=== PATIENT | male | born 1940 | race Caucasian/White ===

== ENCOUNTER 2017-05-04 14:08 | Emergency (ER) | payer MEDICARE, OTHER ==
--- NOTE | 2017-05-04 14:40 | ER Document Report ---
ED Dizziness/Weakness - General Chief Complaint: Nausea/Vomiting Stated Complaint: NAUSEA VOMITING DIZZINESS Time Seen by Provider: 05/04/17 14:24 Mode of Arrival: Stretcher Information source: Patient TRAVEL OUTSIDE OF THE [place] IN LAST 30 DAYS: No - HPI Patient complains to provider of: Dizziness, Vertigo Onset: Just prior to arrival Onset/Duration: Sudden Quality of pain: No pain Associated symptoms: Dizzy, Nausea, Vomiting Baseline gait: Walks w/o assistance Notes: Patient is a 76-year-old male with no medical history, who presents to the emergency room today complaining of dizziness with nausea and 2 episodes of vomiting, states the dizziness developed this afternoon, he went to urgent care to get checked out, vomited in the parking lot walking again, he denies any abdominal pain, no diarrhea, no fever or chills, no questionable food intake, no sick contacts, states that he felt off balance, denies a headache, no fever or chills, otherwise had a normal day, ate well and drink well, has never had any surgeries, denies any chest pain or shortness of breath, in the ambulance ride here he also vomited once, received some IV Zofran and reports feeling much better since then, the urgent care center reports his blood pressure to be 200/108, after receiving the Zofran it was 163/73, here in the emergency department is 148/70, he denies a history of high blood pressure and does not currently take any medications, he reports a similar episode of dizziness back in October which self resolved - Related Data Allergies/Adverse Reactions: No Known Allergies Allergy (Unverified 05/04/17 14:27) Home Medications: Current Home Medications No Home Medications 05/04/17 [History] Past Medical History - General Information source: Patient - Social History Smoking Status: Former Smoker Chew tobacco use (# tins/day): No Frequency of alcohol use: None Drug Abuse: None Family History: Reviewed & Not Pertinent Patient has suicidal ideation: No Patient has homicidal ideation: No Renal/ Medical History: Denies: Hx Peritoneal Dialysis Review of Systems - Review of Systems Constitutional: No symptoms reported EENT: Vertigo Cardiovascular: Dizziness Respiratory: No symptoms reported Gastrointestinal: See HPI Genitourinary: No symptoms reported Male Genitourinary: No symptoms reported Musculoskeletal: No symptoms reported Skin: No symptoms reported Hematologic/Lymphatic: No symptoms reported Neurological/Psychological: No symptoms reported -: Yes All other systems reviewed and negative Physical Exam - Vital signs Vitals: Resp 16 05/04/17 14:22 Interpretation: Normal - General General appearance: Appears well, Alert - HEENT Head: Normocephalic, Atraumatic Eyes: Normal Pupils: PERRL - Respiratory Respiratory status: No respiratory distress Chest status: Nontender Breath sounds: Normal Chest palpation: Normal - Cardiovascular Rhythm: Regular Heart sounds: Normal auscultation Murmur: No - Abdominal Inspection: Normal Distension: No distension Bowel sounds: Normal Tenderness: Nontender Organomegaly: No organomegaly - Back Back: Normal, Nontender - Extremities General upper extremity: Normal inspection, Nontender, Normal color, Normal ROM , Normal temperature General lower extremity: Normal inspection, Nontender, Normal color, Normal ROM , Normal temperature, Normal weight bearing. No: Lew's sign - Neurological Neuro grossly intact: Yes Cognition: Normal Orientation: AAOx4 [place] Coma Scale Eye Opening: Spontaneous [place] Coma Scale Verbal: Oriented [place] Coma Scale Motor: Obeys Commands [place] Coma Scale Total: 15 Speech: Normal Motor strength normal: LUE, RUE, LLE, RLE Sensory: Normal - Psychological Associated symptoms: Normal affect, Normal mood - Skin Skin Temperature: Warm Skin Moisture: Dry Skin Color: Normal Course - Re-evaluation Re-evalutation: 05/04/17 16:09 Patient resting comfortably, continues to remain asymptomatic, will attempt to ambulate and ensure that symptoms do not return, lab findings were discussed with patient and family members at bedside, they did question why his blood pressure was elevated at 160/71, I explained that it is likely a stress reaction because of the events of the day and I would not start him on blood pressure medications at this time but encouraged follow-up with the primary care provider in the next 1-2 days for reevaluation of blood pressure 05/04/17 16:19 Patient was able to ambulate without any additional symptoms, he will be discharged with a Zofran dose pack and instructions for follow-up, advised to return if any additional concerns, patient and family members acknowledge understanding and agreement with this plan - Vital Signs Vital signs: Temp Pulse Resp BP Pulse Ox 97.7 F 63 19 168/69 H 96 05/04/17 14:31 05/04/17 15:21 05/04/17 15:00 05/04/17 15:21 05/04/17 15:00 - Laboratory Result Diagrams: 05/04/17 14:57 05/04/17 14:57 Laboratory results interpreted by me: 05/04/17 05/04/17 14:57 15:15 WBC 14.9 H Seg Neutrophils % 89.7 H Lymphocytes % 6.5 L Absolute Neutrophils 13.4 H Urine Ketones 20 H Urine Ascorbic Acid 40 H - EKG Interpretation by Me EKG shows normal: Sinus rhythm Rate: Normal Rhythm: NSR Discharge - Discharge Clinical Impression: Dizziness Nausea & vomiting Qualifiers: Vomiting type: unspecified Vomiting Intractability: non-intractable Qualified Code(s): R11.2 - Nausea with vomiting, unspecified Condition: Stable Disposition: HOME, SELF-CARE Instructions: Antinausea Medication ([facility]), Vomiting ([facility]), Dizziness ([facility]), Vertigo ([facility]) Additional Instructions: Follow up with your primary care provider in one to 2 days. Return to the emergency room immediately if symptoms worsen or any additional concerns.
[2017-05-04 15:25] LABS: ABSOLUTE MONOCYTES (AUTO) 0.6 10^3/uL (0.1-1.4); ABSOLUTE NEUT (AUTO) 13.4 10^3/uL (1.7-8.2); BASOPHILS % (AUTO) 0.1 % (0-2); HEMATOCRIT 43.5 % (37.9-51.0); HEMOGLOBIN 14.8 g/dL (13.5-17.0); HGB HCT DIFFERENCE 0.9; LYMPHOCYTES % (AUTO) 6.5 % (13-45); MEAN CORPUSCULAR HEMOGLOBIN 31.4 pg (27.0-33.4); MEAN CORPUSCULAR HGB CONC 34.1 g/dL (32.0-36.0); MEAN CORPUSCULAR VOLUME 92 fl (80-97); MONOCYTES % (AUTO) 3.7 % (3-13); RED BLOOD COUNT 4.72 10^6/uL (4.35-5.55); RED CELL DISTRIBUTION WIDTH 12.9 % (11.5-14.0); SEGMENTED NEUTROPHILS % (AUTO) 89.7 % (42-78); WHITE BLOOD COUNT 14.9 10^3/uL (4.0-10.5)
[2017-05-04 15:46] LABS: ALANINE AMINOTRANSFERASE 36 U/L (21-72); ALBUMIN 4.1 g/dL (3.5-5.0); ALKALINE PHOSPHATASE 111 U/L (38-126); ANION GAP 12 (5-19); ASPARTATE AMINO TRANSFERASE 28 U/L (17-59); BILIRUBIN,DIRECT 0.4 mg/dL (0.0-0.4); BILIRUBIN,TOTAL 0.8 mg/dL (0.2-1.3); BLOOD UREA NITROGEN 19 mg/dL (7-20); CALCIUM 9.4 mg/dL (8.4-10.2); CARBON DIOXIDE 25 mmol/L (22-30); CHLORIDE 105 mmol/L (98-107); CREATINE KINASE 85 U/L (55-170); CREATININE RESULT 0.79 mg/dL (0.52-1.25); GLUCOSE 97 mg/dL (75-110); LIPASE 45.7 U/L (23-300); POTASSIUM 4.2 mmol/L (3.6-5.0); SODIUM 142.1 mmol/L (137-145); TOTAL PROTEIN 6.8 g/dL (6.3-8.2)
[2017-05-04 15:56] LABS: APPEARANCE,URINE SLIGHTLY-CLOUDY; BILIRUBIN,URINE NEGATIVE (NEGATIVE); GLUCOSE, URINE NEGATIVE (NEGATIVE); KETONES,URINE 20 mg/dL (NEGATIVE); LEUKOCYTE ESTERASE,URINE NEGATIVE (NEGATIVE); NITRITE,URINE NEGATIVE (NEGATIVE); PROTEIN,URINE NEGATIVE (NEGATIVE); URINE SPECIFIC GRAVITY 1.021; UROBILINOGEN,URINE NEGATIVE mg/dL (<2.0)
[2017-05-04 16:02] LABS: CREATINE KINASE MB 1.72 ng/mL (<4.55)
[2017-05-04 16:03] LABS: TROPONIN I < 0.012 ng/mL
[2017-05-04] MEDS ORDERED: ONDANSETRON ODT 4 MG TAB (6 TAB/ER DISP) PO PRN (16:20)
[2017-05-04 16:23] VITALS: BP 156/72
--- NOTE | 2017-05-04 22:48 | EKG REPORT ---
SEVERITY:- NORMAL ECG - SINUS RHYTHM : Confirmed by: Miguel Berry 04-May-2017 22:47:55
== END 2017-05-04 16:53 | disposition home or self-care (01) ==
LOC: ER 14:08
DX: R11.2 Nausea with vomiting, unspecified (principal); R42 Dizziness and giddiness; Z87.891 Personal history of nicotine dependence
CPT/HCPCS: 93005; 99284; 36415; 82553; 82550; 83690; 85025; 80053; 81001; 84484; 93010; A9270